=== PATIENT | female | born 1965 | race Caucasian/White ===

== ENCOUNTER 2022-03-01 07:43 | Observation (INO) ==
--- NOTE | 2022-02-24 15:24 | Anesthesiology Consultation ---
Date of Service February 24, 2022 Assessment & Plan (1) Encounter for pre-operative examination: - COVID screening: Per assessment on 02/24: No known COVID-19 positive contacts or current COVID-19 related symptoms. Travel screen negative. Patient vaccinated. At surgeon discretion if preop Covid testing being done. - PONV: Extreme. Per pt, "IV anti-emetics and scope patch worked last time" > Scope patch ordered for AM DOS Chart Review Chart Review: Acceptable Risk for Surgery and Patient NOT seen in Pre Admission Testing Consults Requested none ASA ASA2 Proposed Anesthesia Anesthesia Type: General Risk / Benefits Reviewed With: PT / POA / Parent / Guardian, Accepts Plan and Informed Consent Obtained History Surgery Operation Date: 03/01/22 13:10 Proposed Procedures p Right Simple Mastectomy and Right Axillary [place] Lymph Node Biopsy - Augusto Samuel MD Height/Weight Height: 5 ft 4 in Weight: 90.718 kg Allergies Allergy/AdvReac Type Severity Reaction Status Date / Time meperidine Allergy Mild Unknown Verified 03/01/22 08:41 oxycodone Allergy Mild Flushing Verified 03/01/22 08:41 hydromorphone [From Dilaudid] AdvReac Mild Vomiting Verified 03/01/22 08:41 Medications Home Medications Medication Instructions Recorded Confirmed Last Taken choline 2 cap PO QPM 02/24/22 03/01/22 02/16/22 diazepam 5 mg tablet 5 mg PO BID PRN Anxiety 02/24/22 03/01/22 02/22/22 milk thistle 150 mg capsule 150 mg PO QAM 02/24/22 03/01/22 02/22/22 vitamin B complex 1 cap PO QAM 02/24/22 03/01/22 02/22/22 Active Medications Generic Name Dose Route Start Last Admin Trade Name Freq PRN Reason Stop Dose Admin Enoxaparin Sodium 30 mg 03/01/22 06:00 03/01/22 09:18 Enoxaparin Inj 30 Mg/0.3 Ml Syr SQ 03/01/22 23:59 30 mg PREOP GIDEON Administration Lactated Ringer's 1,000 mls @ 15 mls/hr 03/01/22 06:00 03/01/22 09:18 Lr IV 03/02/22 05:59 15 mls/hr .Q24H GIDEON Administration NPO Date Last Intake of Fluids: 03/01/22 Time Last Intake of Fluids: 00:00 Date Last Intake of Solids: 03/01/22 Time Last Intake of Solids: 00:00 Past Medical History Medical History Breast CA recent dx following w/ [facility] History of COVID-19 11/15/2021 (home test)- N/V, fever > resolved Hx of ovarian cyst removed Situational anxiety Exercise / Class Metabolic Activity II 4-5 Yardwork/Stairs/Walk up hill Past Family History Family History Other No family history of adverse response to anesthesia Past Surgical History Surgical History H/O arthroscopic knee surgery History of esophagogastroduodenoscopy (EGD) History of tubal ligation Hx of colonoscopy Nausea and vomiting after administration of anesthetic agent Extreme Per pt, "IV anti-emetics and scope patch worked last time" Past Anesthesia History No Hx of Anesthesia Complications and No Family Hx of Anesthesia Complications History of PONV No Hx of PONV and No Hx of Motion Sickness Social History Smoking Status: Former smoker tobacco type: cigarettes Do You Dip or Chew Tobacco: No Smoking End Date: 1992 Hx Alcohol Use: No Hx Substance Use: No substance use type: does not use Physical Exam Vital Signs Last Vital Signs Temp 97.9 F 03/01/22 08:43 Pulse 67 03/01/22 08:43 Resp 20 03/01/22 08:43 BP 150/89 H 03/01/22 08:43 Pulse Ox 97 03/01/22 08:43 O2 Del Method 03/01/22 08:43 ENMT Mouth: no dentition abnormality Thyromental Distance: > or= 3.5 Finger Breadths Mallampati Class: II Neck normal visual inspection Respiratory normal respiratory effort Auscultation: lungs clear to auscultation bilaterally Cardiovascular Rate/Rhythm: regular rate and regular rhythm Testing Laboratory Results 02/18/22 WBC 5.85 H/H 14.4/46.3 PLATELETS 260 SODIUM 139 POTASSIUM 4.1 CHLORIDE 102 CO2 27 BUN 9 CREATININE 0.8 GLUCOSE 90 Electrocardiogram Date: 02/18/22 NSR at 77bpm. NS TWA.
[~2022-03-01 07:43] MED LIST: CHECK SCOPOLAMINE PATCH PLACEMENT SCH; ENOXAPARIN INJ 30 MG/0.3 ML SYR SQ SCH; LACTATED RINGER'S 1,000 ML IV SCH; SCOPOLAMINE 1 MG TDSY TD SCH; ceFAZolin 2000MG 2,000 MG/15 ML SYR IV SCH
[2022-03-01] MEDS ORDERED: SCOPOLAMINE 1 MG TDSY TD ONE (09:16)
[2022-03-01] MEDS ORDERED: ePHEDrine sulfate 50 MG/ML AMP IV PRN (10:47)
[2022-03-01] MEDS ORDERED: ONDANSETRON INJ 2 MG/ML 2 ML VIAL IV PRN ×2 (10:47→16:31)
[2022-03-01] MEDS ORDERED: ATROPINE SULFATE 0.1 MG/ML 10ML SYR IV PRN (10:47)
--- NOTE | 2022-03-01 12:38 | History & Physical Bridge Note ---
Date of Service March 01, 2022 History & Physical Bridge Note I have examined the patient, reviewed the History & Physical and in the interval since the performance of the History & Physical I have noted the following changes of clinical significance: no changes noted
[2022-03-01] MEDS ORDERED: ROCURONIUM BROMIDE 10 MG/ML 5 ML VIAL IV ONE (12:42)
[2022-03-01] MEDS ORDERED: PROPOFOL IV EMULSION 10 MG/ML 20 ML VIAL IV ONE ×2 (12:42→14:24)
[2022-03-01] MEDS ORDERED: LIDOCAINE 2% 20 MG/ML 5 ML SYR IV ONE (12:42)
[2022-03-01] MEDS ORDERED: MIDAZOLAM HCL 1 MG/ML 2ML VIAL ONE (12:42)
[2022-03-01] MEDS ORDERED: fentaNYL citrate 100 MCG/2 ML VIAL ONE (12:42)
[2022-03-01] MEDS ORDERED: ePHEDrine sulfate 50 MG/ML AMP ONE (12:45)
[2022-03-01] MEDS ORDERED: PHENYLEPHRINE HCL 10 MG/ML VIAL ONE (12:45)
[2022-03-01] MEDS ORDERED: ACETAMINOPHEN 1000 MG/100 ML IV IV ONE (12:57)
[2022-03-01] MEDS ORDERED: BUPIVACAINE/EPINEPHRINE 0.5% MPF 1:200,000 30 ML VIAL ONE (13:19)
[2022-03-01] MEDS ORDERED: METHYLENE BLUE 0.5% 10 ML VIAL ONE (13:20)
[2022-03-01] MEDS ORDERED: KETAMINE 50 MG/5 ML SYRINGE ONE (13:36)
[2022-03-01] MEDS ORDERED: METHYLENE BLUE 0.5% 10 ML VIAL TOP ONE (13:51)
[2022-03-01] MEDS ORDERED: GLYCOPYRROLATE 0.2 MG/ML VIAL ONE (15:00)
[2022-03-01] MEDS ORDERED: NEOSTIGMINE METHYLSULFATE 1 MG/ML 10ML VIAL ONE (15:00)
[2022-03-01] MEDS: fentaNYL citrate 100 MCG/2 ML VIAL IV PRN ×2 (15:33→15:43)
--- NOTE | 2022-03-01 15:34 | Post Operative Brief Note ---
Immediate Post Op Note v1 Date of Surgery March 01, 2022 Pre & Post Diagnosis Operation Date: 03/01/22 13:10 Pre-Op Diagnosis: Infiltrating Ductal Carcinoma Right Breast Post-Op Diagnosis: Infiltrating Ductal Carcinoma Right Breast I identified the patient and participated in the time-out.: Yes Procedure Operation Date: 03/01/22 13:10 Actual Procedures p Right Simple Mastectomy and Right Axillary [place] Lymph Node Biopsy(Right) - Augusto Samuel MD Surgeon Augusto Samuel MD Automobile Appraiser LOR Fletcher assisted with tissue retraction, closure Estimated Blood Loss 15 Findings Consistent with Post-Op Diagnosis Drains Damon-Mckenna Drain (10fr flat)
--- NOTE | 2022-03-01 16:11 | Anesthesiology Progress Note ---
Date of Service March 01, 2022 Anesthesia Post Procedure Vital Signs Vital Signs: Temp Pulse Pulse Resp BP BP Pulse Ox 03/01/22 16:05 97.7 F 52 L 16 141/83 H 93 03/01/22 15:55 57 L 16 158/95 H 94 03/01/22 15:45 55 L 14 152/93 H 95 03/01/22 15:35 59 L 14 160/104 H 99 03/01/22 15:31 97.0 F L 59 L 12 147/109 H 99 03/01/22 08:43 97.9 F 67 20 150/89 H 97 O2 Del Method O2 Flow Rate 03/01/22 16:05 Room Air 03/01/22 15:55 Room Air 03/01/22 15:45 Oxymask 7 03/01/22 15:35 Oxymask 7 03/01/22 15:31 Oxymask 7 03/01/22 08:43 Room Air Pain Intensity Right Breast: Pain Intensity: 4 Transfer of Care Handoff Completed per policy Notes Mental Status: alert / awake / arousable and participated in evaluation Patient Amnestic to Procedure: Yes Nausea / Vomiting: adequately controlled Pain: adequately controlled Airway Patency, RR, SpO2: stable & adequate BP & HR: stable & adequate Hydration State: stable & adequate Anesthetic Complications: no major complications apparent and Pt Satisfied with anesthetic care
[2022-03-01] MEDS ORDERED: MoRPHine SULFATE 2 MG/ML CARP IV PRN (16:31)
[2022-03-01] MEDS ORDERED: ACETAMINOPHEN 1,000 MG/100 ML VIAL IV PRN (16:31)
[2022-03-01] MEDS ORDERED: diphenhydrAMINE Capsule 25 MG CAP PO PRN (16:31)
[2022-03-01] MEDS ORDERED: PROMETHAZINE HCL 12.5 MG in SODIUM CHLORIDE 0.9% 50 ML IV PRN (16:31)
[2022-03-01] MEDS ORDERED: oxyCODONE/ACETAMINOPHEN 5mg/325mg TAB PO PRN (16:31)
[2022-03-01] MEDS: CHECK SCOPOLAMINE PATCH PLACEMENT SCH ×2 (17:26→17:27)
--- NOTE | 2022-03-01 18:17 | Operative Report ---
Post Operative Report Pre & Post Diagnosis Operation Date: 03/01/22 13:10 Pre-Op Diagnosis: Infiltrating Ductal Carcinoma Right Breast Post-Op Diagnosis: Infiltrating Ductal Carcinoma Right Breast I identified the patient and participated in the time-out.: Yes Procedure Operation Date: 03/01/22 13:10 Actual Procedures p Right Simple Mastectomy and Right Axillary [place] Lymph Node Biopsy(Right) - Augusto Samuel MD Surgeon Augusto Samuel MD Industrial Cafeteria Manager LOR Fletcher assisted with tissue retraction, closure Estimated Blood Loss 15 Findings Consistent with Post-Op Diagnosis [place] lymph node x1, count 750; background radiation 5% of the sentinel node Specimens Right sentinel lymph node x1 Right breast mastectomy specimen Drains 10 Faroese flat Anesthesia Type General Complications No immediate complications Indications Right breast infiltrating ductal carcinoma Description of Procedure Patient was taken to the operating room, placed supine on the operating table. Timeout was performed, perioperative antibiotics were administered, SCD boots were placed. Methylene blue dye was injected around the nipple areolar complex on the right. After adequate anesthesia and analgesia was obtained, a Leon catheter was placed, the patient was prepped and draped in the normal sterile fashion. Elliptical incision was measured out on the anterior chest wall extending to the level of the right axilla. Local anesthetic was injected into and around the breast. The elliptical incision was made with a 15 blade scalpel carried into the level of subcutaneous tissue. We began in the axilla, and flaps were raised towards the axillary fat pad and the clavipectoral fascia. The clavipectoral fascia was identified, and entered. Using the neoprobe, I was able to identify the sentinel lymph node. This was dissected free circumferentially. Lymphatics were clamped and tied, and the lymph node was sent off field for specimen. Background radiation after the sentinel node was removed was no greater than 5% of the sentinel node. Attention was then turned to the right breast. Flaps were raised superiorly and inferiorly, with a traction countertraction technique using the Bovie electrocautery. The breast tissue was dissected free from the overlying subcutaneous tissue. The limits of the dissection were the sternum medially, the clavicle superiorly, the rectus sheath inferiorly, and the axillary fat pad laterally. The breast was then removed from the underlying pectoralis major muscle using the Bovie electrocautery, taking care to remove the fascia of the pectoralis major muscle with it. Perforating vessels were clamped and tied with 3-0 silk. One perforating vessel was controlled with a suture ligature. The breast was removed, oriented with sutures and ink, and was sent off the field for specimen. Attention was turned to hemostasis. The wound was copiously irrigated and suctioned free, again hemostasis was checked and attended to and was excellent. A 10 Faroese flat MARY drain was placed through separate stab incision and was sewn in place with a 3-0 nylon suture. Subcutaneous tissue was closed with interrupted 3-0 Vicryl sutures. The skin was closed with a running 4-0 Monocryl subcuticular stitch. Benzoin and Steri- Strips were applied. Dressings were applied. She tolerated the procedure wi thout complication, was transferred in stable condition to the PACU. All instrument, needle, and sponge counts were correct at the end of the case. My assistant kitchen manager was necessary throughout the procedure for tissue retraction, possible camera operation, and closure of the wounds. I understand that section 1842(b)(7)(D) of the Social Security act generally prohibits Medicare physician fee schedule payment for the services of assistants at surgery in teaching hospitals when qualified residents are available to furnish such services. I certify that the services for which payment is claimed were medically necessary and that no qualified resident was available to perform the services. I further understand that these services are subject to postpayment review by the Medicare carrier. I attest to the content of the Intraoperative Record and any orders documented therein. Any exceptions are noted below.
[2022-03-01] MEDS: KETOROLAC 30 MG/ML VIAL IV PRN (19:53)
[2022-03-02] MEDS: CHECK SCOPOLAMINE PATCH PLACEMENT SCH ×2 (07:26)
[2022-03-02 07:30] LABS: Creatinine Clr Calc Pharmacy 86.6 ml/min; Est GFR (Non-African American) 83.7 ml/min
[2022-03-02] MEDS: KETOROLAC 30 MG/ML VIAL IV PRN (07:31)
[2022-03-02] MEDS ORDERED: ENOXAPARIN INJ 40 MG/0.4 ML SYR SQ SCH (08:00)
--- NOTE | 2022-03-02 10:17 | Discharge Summary ---
Date of Service March 02, 2022 Admission HPI Per Admitting Provider Patient presented to [facility] for outpatient right mastectomy and right sentinel lymph node biopsy for right intermediate grade invasive ductal carcinoma. Estrogen receptor status is positive, parishioners receptor status positive and HER2/karl receptor negative. Principal Diagnosis Right breast invasive ductal carcinoma Discharge Exam Constitutional WD/WN, vitals as above no acute distress and not ill appearing Neck normal visual inspection and trachea midline Respiratory normal respiratory effort; no respiratory distress Chest (Breasts) Additional Comments: Right chest wall with dressing intact, clean, dry, intact. Right chest wall MARY drain with 25 cc of bloody output. Mildly tender to palpation of the right chest wall. Skin no rashes, warm and dry Psychiatric A+Ox3, euthymic affect Discharge Data Allergies Allergy/AdvReac Type Severity Reaction Status Date / Time meperidine Allergy Mild Unknown Verified 03/01/22 08:41 oxycodone Allergy Mild Flushing Verified 03/01/22 08:41 hydromorphone [From Dilaudid] AdvReac Mild Vomiting Verified 03/01/22 08:41 Procedures Performed Operation Date: 03/01/22 13:10 Actual Procedures p Right Simple Mastectomy and Right Axillary [place] Lymph Node Biopsy(Right) - Augusto Samuel MD Ordered Studies 03/01/22 05:00 US - OR guided needle placemen Routine Hospital Course (1) Invasive ductal carcinoma of right breast: Patient was taken to the operating room for a right mastectomy with right sentinel lymph node biopsy by Dr. Samuel. Patient tolerated procedure well and was transferred to recovery and then to medical/surgical floor for postoperative care. Her diet was advanced as tolerated, activity as tolerated IV morphine with IV Toradol and p.o. Tylenol as needed for pain IV antiemetics as needed for nausea, MARY drain to bulb suction, SCDs and Lovenox for DVT prophylaxis. Patient was evaluated on postop day #1 in stable condition. Afebrile, vital signs stable. Pain controlled with IV Toradol. No nausea no vomiting. Ambulated hallway and urinating without difficulty. MARY drain with 75 cc of bloody output since placement. Patient doing well. Patient was discharged home on postop day #1 in stable condition Total Time Total Time Spent Total Time Spent (In Minutes): 30 minutes Total Time Includes: Examination of the Patient, Discharge Planning and Medication Reconciliation Discharge Plan Discharge Items Patient Disposition: Home - Self-Care Reason For Visit: POSTOP MASTECTOMY Discharge Diagnosis: Right breast cancer s/p right mastectomy and sentinel lymph node biopsy Activity: Per Instructions section Non-emergency contact: Primary Care Provider and Surgeon Call non-emergency contact if: you have any medication questions, your pain is not controlled, your pain is worsening, you have a fever, your temperature is above 101, your wound has increased redness, your wound has increased drainage and your wound pain has increased Follow-up/Referrals: Augusto Samuel MD [Primary Care Provider] - Diet: Regular Addtl Attending Provider Instructions: Post-Surgical ~Discharge Instructions Activity Recommendations: - lifting limitation: (20 pounds for 3 weeks), - exercise/sex/sports limit: (nonstrenuous for 3 weeks), - driving or machine use limit: (no driving until pain free and no longer taking narcotic pain medication), - Shower/bathe limit: (may shower beginning tomorrow) Diet: - Resume previous diet SPECIAL CARE INSTRUCTIONS: - May shower in 24 hours. Let water run over area and pat dry. - Leave dressing on until see in office. If becomes saturated change outer dressing as needed. - Keep record of drain output and color. Drain should be removed if less than 25-30 cc in 2 consecutive days. Call office and nurse can remove drain for you. - Call the surgeon's office with any questions or concerns - - (ex. temperature higher than 101 degrees F, excessive bleeding or pain). MEDICATIONS: - Resume previous medications unless instructed otherwise by your surgeon. May take extra strength Tylenol and Ibuprofen as needed for mild to moderate pain -650 mg Tylenol every 6 hours as needed - Ibuprofen 600 mg every 6 hours as needed (take with food) - Tramadol 1 every 6 hours, as needed for moderate to severe pain FOLLOW UP VISIT: - If not already scheduled, please call the office to schedule a two week follow-up appointment. Office number Pending Studies at Discharge: Yes (surgical pathology) Stand-Alone Forms: My [facility], Smoking Cessation Medications and DC Order Prescriptions: New tramadol 50 mg tablet 50 mg PO Q6H PRN (Reason: pain) Qty: 12 0RF ondansetron HCl 4 mg tablet 4 mg PO Q6H PRN (Reason: nausea and vomiting) Qty: 15 0RF Continued milk thistle 150 mg Capsule 150 mg PO QAM vitamin B complex Capsule 1 cap PO QAM diazepam 5 mg Tablet 5 mg PO BID PRN (Reason: Anxiety) choline Capsule 2 cap PO QPM Discharge Orders: Discharge Order (Routine); Ordered 03/02/22 Ordered By: Reyna Fletcher Admission Data Admit Date/Time: 03/01/22 15:40 Attending Provider: Augusto Samuel Admit Provider: Augusto Samuel Primary Care Provider: Augusto Samuel
== END 2022-03-02 13:23 | disposition home or self-care (01) ==
LOC: 3W 07:43 → ASU 07:43